=== PATIENT | male | born 1960 | race Caucasian/White ===

== ENCOUNTER 2020-07-05 16:51 | Observation (INO) | payer OTHER, MEDICAID, SELFPAY ==
[2020-07-05 17:25] VITALS: BP 117/65; PULSE 90; RESP 18; TEMP 37; O2SAT 98; BMI 28.3
--- NOTE | 2020-07-05 17:28 | DI.RAD.S_ITS ---
PROCEDURE: XR FOOT RT MIN 3V INDICATIONS: foot swelling, possible metal TECHNIQUE: 3 nonweightbearing views of the foot were acquired. COMPARISON: None. FINDINGS: Bones: No acute fractures or dislocations. No suspicious bony lesions. Soft tissues: No tibiotalar joint effusion. Achilles tendon appears normal. Thin radiopaque lesion is seen at the medial aspect of the distal great toe that may represent calcifications or a radiopaque loose body. Findings are seen in the region of the medial toenail and could be located on or near the skin surface. IMPRESSION: Thin radiopaque lesion at the medial aspect of the distal great toe in the region of the medial toenail that may be on or near the skin surface. No underlying osseous fracture is seen. Dictated by: Angel Luis Smith M.D. on 07/05/2020 at 18:41 Approved by: Angel Luis Smith M.D. on 07/05/2020 at 18:43
[2020-07-05 18:59] LABS: Add Manual Diff / Slide Review NO; Basophils Absolute Auto 100 /uL (0-100); Basophils Percent Auto 0.9 % (0-2); Eosinophils Absolute Auto 200 /uL (0-450); Hematocrit 39.9 % (41-53); Hemoglobin 13.7 g/dL (13.5-17.5); Lymphocytes Absolute Auto 1400 /uL (1100-4500); Lymphocytes Percent Auto 22.9 % (25-40); Mean Corpuscular HGB Conc 34.4 % (30-36); Mean Corpuscular Hemoglobin 31.3 PG (26-34); Monocytes Absolute Auto 600 /uL (0-900); Monocytes Percent Auto 9.2 % (3-14); Neutrophils Absolute Auto 3900 /uL (1500-7000); Platelet Count 201 X10^3/uL (150-400); Red Blood Cell Count 4.38 X10^6/uL (4.5-5.9); Red Cell Distribution Width 12.8 % (11.6-14.8)
[2020-07-05 19:12] LABS: BUN Creatinine Ratio 18.5 (6-22); Blood Urea Nitrogen 23 mg/dL (9-20); C-Reactive Protein Quant 0.9 mg/dL (<1.0); Calcium 9.3 mg/dL (8.4-10.2); Carbon Dioxide 29 mmol/L (22-32); Chloride 104 mmol/L (98-107); Estimated Glomerular Filt Rate 59.3 mL/min (>60); Glucose 94 mg/dL (80-110); HEMOLYSIS < 15 (0-50); Potassium 4.1 mmol/L (3.4-5.1); Sodium 138 mmol/L (137-145)
[2020-07-05 19:33] LABS: Erythrocyte Sedimentation Rate 13 MM/HR (0-15)
[2020-07-05 19:54] VITALS: BP 125/64; PULSE 88; RESP 16
--- NOTE | 2020-07-05 20:48 | ED_ITS ---
HPI - Extremity Problem General Chief complaint: Extremity Problem,Nontraumatic Stated complaint: RIGHT TOE INFECTION Time Seen by Provider: 07/05/20 18:10 Source: patient Mode of arrival: Ambulatory Limitations: no limitations History of Present Illness HPI Narrative: 59-year-old male nonsmoker with history of hypertension presents with his in the chief complaint of increasing pain, redness and swelling of his right great toe. He has had increasing symptoms for the past 3 days and states that he now has significant pain with palpation or ambulation of his right great toe. He now has pain, redness and swelling of his entire toe which extends into the dorsum of his foot in even has red streaking on anterior oliver. He has no systemic findings such as fever, chills nor nausea or vomiting. He states that he recalls wearing athletic shoes and getting a metallic sliver in his right great toe 3 days ago. He just pulled that sliver out prior to his arrival. MD Complaint: extremity pain and extremity swelling Onset (ago): day(s) Pain Consistency: constant Location: right Quality: aching and constant Radiation: proximal Relieving factors: rest Exacerbating factors: walking and palpation Related Data Home Medications Medication Instructions Recorded Confirmed losartan 100 mg PO QAM 07/05/20 07/05/20 Allergies Allergy/AdvReac Type Severity Reaction Status Date / Time No Known Drug Allergies Allergy Verified 07/05/20 17:29 Review of Systems Constitutional Constitutional: Denies chills, Denies fatigue, Denies fever(s), Denies frequent falls, Denies lethargy and Denies weakness Eyes Eyes: Denies change in vision, Denies eye discharge, Denies irritation and Denies loss of vision ENT Ears, Nose, Mouth, and Throat: Denies change in voice, Denies dizziness, Denies neck pain, Denies sore throat and Denies throat swelling Cardiovascular Cardiovascular: Denies chest pain, Denies irregular heart rhythm, Denies lightheadedness, Denies palpitations, Denies dyspnea, Denies dyspnea on exertion and Denies orthopnea Respiratory Respiratory: Denies cough, Denies dyspnea, Denies dyspnea on exertion and Denies wheezing Gastrointestinal Gastrointestinal: Denies abdominal pain, Denies change in bowel habits, Denies diarrhea, Denies nausea and Denies vomiting Musculoskeletal Musculoskeletal: Denies neck pain and Denies numbness Integumentary/Breasts Skin/Breast: Denies pruritus, Reports erythema, Denies rash, Reports skin pain, Reports skin swelling and Reports wounds Neurologic Neurologic: Denies behavioral changes, Denies confusion, Denies dizziness, Denies frequent falls, Denies loss of vision, Denies numbness and Denies weakness Psychiatric Psychiatric: Denies anxiety, Denies behavioral changes, Denies confusion, Denies depression, Denies homicidal ideation and Denies suicidal ideation Endocrine Endocrine: Denies fatigue, Denies flushing and Denies palpitations Hematologic/Lymphatic Hematologic/Lymphatic: Denies easy bruising Allergic/Immunologic Allergic/Immunologic: Denies urticaria, Denies throat swelling and Denies wheezing Patient History Medical History Essential hypertension (Acute) Social History household members: spouse Smoking Status: Never smoker alcohol intake: current Smoking Status: Never smoker alcohol intake frequency: 0-2 drinks per day Exam Narrative Exam Narrative: GENERAL: [59] year old patient appears stated age. Well-nourishe d, well-developed patient, in mild distress. HEAD: Atraumatic. Normocephalic. EYES: Pupils equal round and reactive. Extraocular motions intact. No scleral icterus. No injection or drainage. ENT: Nose without bleeding, purulent drainage. Throat without erythema, tonsillar hypertrophy or exudate. Airway patent. NECK: Trachea midline. Non tender CARDIOVASCULAR: Regular rate and rhythm without murmurs, gallops, or rubs. RESPIRATORY: Clear to auscultation. Breath sounds equal bilaterally. No wheezes, rales, or rhonchi. GASTROINTESTINAL: Abdomen soft, non-tender, nondistended. EXTREMITIES: Right great toe was notably erythematous, swollen and tender. There is erythema extending to the dorsum of the right foot and lymphangitis extends proximally to the anterior oliver. There is induration and perhaps a small amount of fluctuation near an obvious puncture site on the plantar surface of right great toe. There is no active bleeding or drainage. Otherwise No edema or joint tenderness. BACK: Nontender without deformity or crepitance. No flank tenderness. NEURO: AOx3. SKIN: No rash or erythema of visible areas Initial Vital Signs Initial Vital Signs: Vital Signs Temperature 98.6 F 07/05/20 17:25 Pulse Rate 90 07/05/20 17:25 Respiratory Rate 18 07/05/20 17:25 Blood Pressure 117/65 07/05/20 17:25 Pulse Oximetry 98 07/05/20 17:25 Procedures Abscess I/D I&D #1: Site: lower extremity Side (if applicable): right Local Anesthetic: lidocaine 1% and with bicarb Technique: incised with #11 blade Amount of fluid expressed (mL): 2 Irrigation: No Packing used?: none Complications: pain and bleeding Course Orders Ordered: ED Orders 07/05/20 17:28 XR foot RT min 3V Stat 07/05/20 18:50 Basic Metabolic Panel Stat Blood Culture Stat C-Reactive Protein Quant Stat Complete Blood Count AUTO DIFF Stat Erythrocyte Sedimentation Rate Stat Acetaminophen (Tylenol) 650 mg PO Q6HR PRN PRN Reason: Fever/Mild Pain (1-3) Acetaminophen (Tylenol) 650 mg PO Q6HR PRN PRN Reason: Fever/Mild Pain (1-3) Ibuprofen (Advil) 800 mg PO Q6HR PRN PRN Reason: Pain, Mild (1-3) Levofloxacin (Levaquin) 750 mg PO DAILY JITENDRA Naloxone HCl (Narcan) 0.2 mg IV Q2MIN PRN PRN Reason: Opiate Reversal Ondansetron HCl (Zofran) 4 mg IV Q8HR PRN PRN Reason: Nausea And Vomiting Discontinued Medications Diphtheria/Tetanus/Acell Pertussis (Adacel) 0.5 ml IM .ONCE ONE Stop: 07/05/20 23:27 Last Admin: 07/06/20 00:15 Dose: 0.5 ml Documented by: CARMELA Levofloxacin (Levaquin) 500 mg in 100 mls @ 100 mls/hr IV NOW ONE Stop: 07/05/20 21:05 Last Infusion: 07/06/20 00:22 Dose: 0 mls/hr Documented by: Infusion: 07/05/20 21:48 Dose: 100 mls/hr Documented by: Admin: 07/05/20 21:16 Dose: 100 mls/hr Documented by: CECILIA Lidocaine/Sodium Bicarbonate (Buffered Lidocaine 10 Ml Syr) 10 ml INJ NOW ONE Stop: 07/05/20 20:06 Last Admin: 07/05/20 21:16 Dose: 10 ml Documented by: CECILIA Consultations Consultation #1: discussion with ortho. Recommend ID, antibiotics, further imaging and washout if needed. Vital Signs Vital signs: Vital Signs - 8 hr 07/05/20 19:54 07/05/20 21:00 Pulse Rate 88 88 Respiratory Rate 16 16 Blood Pressure 125/64 125/64 Pulse Oximetry 98 MDM - Extremity (Nontraumatic) Lab Data Result diagrams: 07/05/20 18:50 07/05/20 18:50 Labs: Lab Results 07/05/20 07/05/20 Range/Units 18:50 18:50 WBC 6.0 (4.5-11.0) X10^3/uL RBC 4.38 L (4.5-5.9) X10^6/uL Hgb 13.7 (13.5-17.5) g/dL Hct 39.9 L (41-53) % MCV 91.0 (80-100) fL MCH 31.3 (26-34) PG MCHC 34.4 (30-36) % RDW 12.8 (11.6-14.8) % Plt Count 201 (150-400) X10^3/uL Neut % (Auto) 64.0 (50-75) % Lymph % (Auto) 22.9 L (25-40) % [place] % (Auto) 9.2 (3-14) % Eos % (Auto) 3.0 (2-4) % Baso % (Auto) 0.9 (0-2) % Neut # (Auto) 3900 (9280-4026) /uL Lymph # (Auto) 1400 (3410-6552) /uL [place] # (Auto) 600 (0-900) /uL Eos # (Auto) 200 (0-450) /uL Baso # (Auto) 100 (0-100) /uL ESR 13 (0-15) MM/HR Sodium 138 (137-145) mmol/L Potassium 4.1 (3.4-5.1) mmol/L Chloride 104 (98-107) mmol/L Carbon Dioxide 29 (22-32) mmol/L BUN 23 H (9-20) mg/dL Creatinine 1.24 (0.66-1.25) mg/dL Estimated GFR 59.3 L (>60) mL/min BUN/Creatinine Ratio 18.5 (6-22) Glucose 94 (80-110) mg/dL Calcium 9.3 (8.4-10.2) mg/dL C-Reactive Protein 0.9 (<1.0) mg/dL Imaging Data Extremity x-ray #1: Radiologist's Impression: Garret Scott P 59 M [address] [address] XRay Report Signed Patient: Garret Scott PMR#: [id number] : [id number]:[id number] Age/Sex: 59 / MDate of Service: 07/05/20 Loc: ED Accession Number: [id number] Procedure: XR foot RT min 3V Ordering Provider: Mariola Payan [employer]ATING [employer] PROCEDURE: XR FOOT RT MIN 3V INDICATIONS: foot swelling, possible metal TECHNIQUE: 3 nonweightbearing views of the foot were acquired. COMPARISON: None. FINDINGS: Bones: No acute fractures or dislocations. No suspicious bony lesions. Soft tissues: No tibiotalar joint effusion. Achilles tendon appears normal. Thin radiopaque lesion is seen at the medial aspect of the distal great toe that may represent calcifications or a radiopaque loose body. Findings are seen in the region of the medial toenail and could be located on or near the skin surface. IMPRESSION: Thin radiopaque lesion at the medial aspect of the distal great toe in the region of the medial toenail that may be on or near the skin surface. No underlying osseous fracture is seen. Dictated by: Angel Luis Smith M.D. on 07/05/2020 at 18:41 Approved by: Angel Luis Smith M.D. on 07/05/2020 at 18:43 Discharge Plan Departure Patient Disposition: Admitted as Observation Clinical Impression: Cellulitis and abscess of toe of right foot Discharge Date/Time: 07/05/20 21:49 Admit Date/Time: 07/05/20 21:12 Admit Provider: Kristi Holloway
[2020-07-05 21:00] VITALS: BP 125/64; PULSE 88; RESP 16; O2SAT 98
[2020-07-05] MEDS: LIDO 1%/SOD BICARB 8.4% (10ML) 10 ML SYRINGE INJ (21:16)
[2020-07-05] MEDS: levoFLOXacin 500 MG/100 ML PIGGYBACK 100 MG IV (21:16)
[2020-07-05 21:49] VITALS: BP 135/64; PULSE 88; RESP 16; TEMP 36.9; O2SAT 98
[2020-07-05 22:00] VITALS: BP 122/65; PULSE 69; RESP 17; TEMP 35.9; O2SAT 99
[2020-07-05 22:03] VITALS: BMI 28.3
[2020-07-05 22:54] LABS: COVID19 -Nasal RAPID Negative (Negative)
[2020-07-05 23:00] VITALS: O2SAT 99
[2020-07-06] MEDS: TET,DIPH,PERTUSS(ACELL),VAC/PF 0.5 ML SYRINGE IM (00:15)
--- NOTE | 2020-07-06 01:40 | P.HP_ITS ---
History of Present Illness History of Present Illness Date Patient Seen: 07/05/20 Time Patient Seen: 22:30 Chief complaint: RIGHT TOE INFECTION Narrative: Garret Scott is a 59-year-old male with a limited medical history of only hypertension, and no surgeries who was working in his shop when he noticed that his foot was sore. He was trying to figure out whether not he had actually dropped something on it. He then took his sock off and looked at his foot and noticed that he had what appeared to be a piece of metal shard on the bottom of his great right toe. He decided to remove the sliver with a knife that he had. He then presented to the emergency room because he developed increasing pain and redness. For the patient he did not know when his last Tdap was. He denies fever sweats or chills, his main complaint is increasing redness of his right foot and pain in his right great toe. In the emergency department they started him on a 1 time dose IV Levaquin 500 mg to cover both skin structure insert possible Pseudomonas. Apparently Dr. Shashi simmons was called and per the ED provider did not feel that she needed to do a debridement. Patient's presenting vitals: Temp 96.6?, blood pressure 122/65, heart rate 69, respiratory rate of 17, oxygen saturation 99% room air, he weighs 97.5 kg with a BMI of 28.3. WBC 6.0, RBC 4.38, hemoglobin 13.7, hematocrit 39.9, platelet count 201, sodium 138, potassium 4.1, chloride 104, CO2 29, creatinine 1.24, BUN, GFR is 59.3, COVID-19 negative. Patient History Medical History (Updated 07/06/20 @ 01:43 by RYAN Lo) Essential hypertension (Acute) Family & Social History Social History: household members spouse Prior Living Arrangements House Safety & Behavioral: Feels Safe in Current Yes Environment Been Physically Hurt or No Threatened By a Person Suicidal Ideation Description None Suicide Plan Description No Plan Tobacco & Substance use: Smoking Status Never smoker alcohol intake current alcohol intake frequency 0-2 drinks per day Substance Use Type does not use Meds Home Medications and Allergies Home Medications Medication Instructions Recorded Confirmed Type losartan 100 mg PO QAM 07/05/20 07/05/20 History Allergies Allergy/AdvReac Type Severity Reaction Status Date / Time No Known Drug Allergies Allergy Verified 07/05/20 17:29 Review of Systems Review of Systems ROS: Yes All systems reviewed with the patient and are negative except as otherwise documented Exam Vital Signs (past 8 hours): - 07/05/20 19:54 07/05/20 21:00 07/05/20 21:49 Temperature 98.4 F Pulse Rate 88 88 88 Respiratory Rate 16 16 16 Blood Pressure 125/64 125/64 135/64 Pulse Oximetry 98 98 07/05/20 22:00 Temperature 96.6 F L Pulse Rate 69 Respiratory Rate 17 Blood Pressure 122/65 Pulse Oximetry 99 Oxygen Delivery Method Room Air Narrative Exam Narrative: Alert, oriented, well-developed 59 y.o. male, NAD HEENT: normocephalic, atraumatic, conjunctiva clear, sclera non-icteric, oral mucosa pink and moist Neck: supple, full ROM, no JVD, trachea is midline Resp: Lungs CTA, non-labored breathing CV: RRR, no murmur or rubs Abd: soft, non-tender, normoactive BTs Skin: Patient has a darkened punctate hole at the bottom of his right great toe in the joint line, or rashes, dry and intact Neuro: Alert and oriented X 4 w/no focal deficits. Speech clear and coherent. Extremities: Great right toe is swollen and stiff moves all 4 extremities, is ambulatory, negative Manny?s sign Psyche: normal mood and affect. Objective Labs Result Diagrams: 07/05/20 18:50 07/05/20 18:50 Labs: Laboratory Results - last 24 hr 07/05/20 07/05/20 07/05/20 18:50 18:50 21:15 WBC 6.0 RBC 4.38 L Hgb 13.7 Hct 39.9 L MCV 91.0 MCH 31.3 MCHC 34.4 RDW 12.8 Plt Count 201 Neut % (Auto) 64.0 Lymph % (Auto) 22.9 L [place] % (Auto) 9.2 Eos % (Auto) 3.0 Baso % (Auto) 0.9 Neut # (Auto) 3900 Lymph # (Auto) 1400 [place] # (Auto) 600 Eos # (Auto) 200 Baso # (Auto) 100 ESR 13 Sodium 138 Potassium 4.1 Chloride 104 Carbon Dioxide 29 BUN 23 H Creatinine 1.24 Estimated GFR 59.3 L BUN/Creatinine Ratio 18.5 Glucose 94 Calcium 9.3 C-Reactive Protein 0.9 COVID-19 PCR Negative Assessment & Plan Assessment & Plan narrative: Garret Scott will be observed overnight for further monitoring and treatment of a potential abscess and infection of the great right toe. Suspected abscess and cellulitis of the great right toe, acute, present on a dmission -he will start oral Levaquin 750 mg p.o. daily as it has the same bioavailability as IV Levaquin -Dr. Garibay was consulted in the ED -recommended hot soaks, marking the area of erythema on his ankle area -if worsening will recommend further advanced imaging -he received a Tdap vaccine Essential hypertension -continue home dose of losartan 100 mg p.o. in the morning Consults: Dr. Paz was notified and may consult and involvement as requested Patient is observation status as his stay is not likely to exceed 2 midnights. FEN: saline lock, low sodium diet, BMP and magnesium in the am. VTE prophylaxis: Bilateral SCDs Dispo: Probable discharge home on oral antibiotics with follow-up with his PCP. Code Status: Full code as discussed with patient Quality VTE Deep Vein Thrombosis/Pulmonary Embolism Present on Admission: No
[2020-07-06 05:55] VITALS: BP 118/65; PULSE 70; RESP 16; TEMP 36.3; O2SAT 96
[2020-07-06 06:16] LABS: Blood Urea Nitrogen 19 mg/dL (9-20); Calcium 8.7 mg/dL (8.4-10.2); Carbon Dioxide 31 mmol/L (22-32); Chloride 104 mmol/L (98-107); Estimated Glomerular Filt Rate > 60.0 mL/min (>60); Glucose 101 mg/dL (80-110); HEMOLYSIS < 15 (0-50); Magnesium 1.9 mg/dL (1.6-2.3); Potassium 4.5 mmol/L (3.4-5.1); Sodium 137 mmol/L (137-145)
[2020-07-06 06:21] LABS: Add Manual Diff / Slide Review NO; Basophils Absolute Auto 100 /uL (0-100); Basophils Percent Auto 1.2 % (0-2); Eosinophils Absolute Auto 200 /uL (0-450); Eosinophils Percent Auto 4.4 % (2-4); Hematocrit 41.2 % (41-53); Lymphocytes Absolute Auto 1100 /uL (1100-4500); Lymphocytes Percent Auto 19.7 % (25-40); Mean Corpuscular Hemoglobin 31.2 PG (26-34); Mean Corpuscular Volume 91.8 fL (80-100); Monocytes Absolute Auto 700 /uL (0-900); Monocytes Percent Auto 11.4 % (3-14); Neutrophils Absolute Auto 3600 /uL (1500-7000); Neutrophils Percent Auto 63.3 % (50-75); Platelet Count 186 X10^3/uL (150-400); Red Blood Cell Count 4.49 X10^6/uL (4.5-5.9); Red Cell Distribution Width 12.8 % (11.6-14.8); White Blood Cell Count 5.7 X10^3/uL (4.5-11.0)
[2020-07-06 08:28] VITALS: BP 120/77; PULSE 75; RESP 16; TEMP 35.9; O2SAT 97
--- NOTE | 2020-07-06 08:45 | P.CONS_ITS ---
History of Present Illness Consult details Date Patient Seen: 07/06/20 Time Patient Seen: 08:45 Chief complaint: RIGHT TOE INFECTION Reason for consult: Cellulitis puncture wound Requesting provider: Santos Aden Narrative: Garret is a 59-year-old male with a history of hypertension presents with a right great toe cellulitis. States he was working in his shop several days ago when he believes a metal splinter gotten through the top of his shoe. He does recall feeling something underneath his toe 1 point but did not think much of it. Few days later his toe became red and swollen and painful. That is when they found a black dot on the plantar surface of his great toe for right near the IP joint flexion crease. This was noted to be a metal sliver. Patient states with the help of a mirror he dug the metal shard out with a knife. But with the redness and swelling and a previous history of a staph infection before he presented to the ER for evaluation. No history of diabetes. He was not aware of when his last tetanus was but this was updated in the ER. In the ER a small I&D of the area was completed and a culture sent. He is also given a dose of Levaquin. Overnight he notes that his redness that was on the toe and actually extending up the oliver is in well has completely resolved. Swelling in the toe and tenderness have improved. And range of motion has improved. Meds Home Medications and Allergies Home Medications Medication Instructions Recorded Confirmed Type losartan 100 mg PO QAM 07/05/20 07/05/20 History Allergies Allergy/AdvReac Type Severity Reaction Status Date / Time No Known Drug Allergies Allergy Verified 07/05/20 17:29 Review of Systems Review of Systems ROS: Yes All systems reviewed with the patient and are negative except as ot herwise documented Exam Vital Signs (past 8 hours): - 07/06/20 05:55 07/06/20 08:28 Temperature 97.4 F L 96.6 F L Pulse Rate 70 75 Respiratory Rate 16 16 Blood Pressure 118/65 120/77 Pulse Oximetry 96 97 Oxygen Delivery Method Room Air Oxygen Flow Rate 0 Narrative Exam Narrative: General exam is alert oriented male in no acute distress. Sitting in bed. HEENT exam normocephalic atraumatic Respiratory exam unlabored on room air Heart regular rate and rhythm Abdomen benign Musculoskeletal exam moving upper extremities bilaterally full range of motion. Moves bilateral lower extremities full range of motion. Right great toe. There is mild swelling. Previous it reported erythema of the dorsum of the foot to the mid calf and left and dried is has resolved. There is a small puncture area at the IP flexion crease plantarly at the great toe there is no fluctuance and no fluid that can be expressed from this. Patient demonstrates active flexion and extension at the IP joint. This causes minimal discomfort. Sensation grossly intact to light touch. Brisk capillary refill. Objective Imaging R foot XR: My impression: Three views of the right foot. On the lateral image of the great toe does appear to be a small radiopaque then object near the surface right around the IP flexion crease. This could be a small metal rim minute this was before the ER I and D. no fractures are seen Radiologist's impression: IMPRESSION: Thin radiopaque lesion at the medial aspect of the distal great toe in the region of the medial toenail that may be on or near the skin surface. No underlying osseous fracture is seen. Dictated by: Angel Luis Smith M.D. on 07/05/2020 at 18:41 Approved by: Angel Luis Smith M.D. on 07/05/2020 at 18:43 Labs Result Diagrams: 07/06/20 05:30 07/06/20 05:30 Labs: Laboratory Results - last 24 hr 07/05/20 07/05/20 07/05/20 18:50 18:50 21:15 WBC 6.0 RBC 4.38 L Hgb 13.7 Hct 39.9 L MCV 91.0 MCH 31.3 MCHC 34.4 RDW 12.8 Plt Count 201 Neut % (Auto) 64.0 Lymph % (Auto) 22.9 L [place] % (Auto) 9.2 Eos % (Auto) 3.0 Baso % (Auto) 0.9 Neut # (Auto) 3900 Lymph # (Auto) 1400 [place] # (Auto) 600 Eos # (Auto) 200 Baso # (Auto) 100 ESR 13 Sodium 138 Potassium 4.1 Chloride 104 Carbon Dioxide 29 BUN 23 H Creatinine 1.24 Estimated GFR 59.3 L BUN/Creatinine Ratio 18.5 Glucose 94 Calcium 9.3 Magnesium C-Reactive Protein 0.9 COVID-19 PCR Negative 07/06/20 07/06/20 05:30 05:30 WBC 5.7 RBC 4.49 L Hgb 14.0 Hct 41.2 MCV 91.8 MCH 31.2 MCHC 34.0 RDW 12.8 Plt Count 186 Neut % (Auto) 63.3 Lymph % (Auto) 19.7 L [place] % (Auto) 11.4 Eos % (Auto) 4.4 H Baso % (Auto) 1.2 Neut # (Auto) 3600 Lymph # (Auto) 1100 [place] # (Auto) 700 Eos # (Auto) 200 Baso # (Auto) 100 ESR Sodium 137 Potassium 4.5 Chloride 104 Carbon Dioxide 31 BUN 19 Creatinine 0.95 Estimated GFR > 60.0 BUN/Creatinine Ratio 20.0 Glucose 101 Calcium 8.7 Magnesium 1.9 C-Reactive Protein COVID-19 PCR Assessment & Plan Assessment and plan (1) Cellulitis and abscess of toe of right foot: Problem details: The patient had a metal sliver at the plantar aspect of his great toe IP joint in the subcutaneous tissues. He removed at home. On the x-ray there may be a small fragment left this was prior to the ER I and D and the patient has had marked improvement in his cellulitis overnight with a dose of antibiotics. At this point his clinical appearance is greatly improved. Recommend discharge with oral antibiotics. If swelling or erythema recurs would plan for repeat I and D at the area of the puncture site. No evidence of abscess currently. Patient had up-to-date tetanus in the ER. He can follow up in my clinic as an outpatient if there are any persistent concerns. Status: Acute
[2020-07-06] MEDS: SODIUM CHLORIDE 0.9% FLUSH 10 ML IV (08:58)
[2020-07-06] MEDS: levoFLOXacin 250 MG TABLET 750 MG PO (08:59)
--- NOTE | 2020-07-06 09:08 | PM.DS.1 ---
History of Present Illness History of Present Illness Date Patient Seen: 07/06/20 Chief complaint: RIGHT TOE INFECTION Narrative: Garret Scott is a 59-year-old male with a limited medical history of only hypertension, and no surgeries who was working in his shop when he noticed that his foot was sore. He was trying to figure out whether not he had actually dropped something on it. He then took his sock off and looked at his foot and noticed that he had what appeared to be a piece of metal shard on the bottom of his great right toe. He decided to remove the sliver with a knife that he had. He then presented to the emergency room because he developed increasing pain and redness. For the patient he did not know when his last Tdap was. He denies fever sweats or chills, his main complaint is increasing redness of his right foot and pain in his right great toe. In the emergency department they started him on a 1 time dose IV Levaquin 500 mg to cover both skin structure insert possible Pseudomonas. Apparently Dr. Garibay was called and per the ED provider did not feel that she needed to do a debridement. Patient's presenting vitals: Temp 96.6?, blood pressure 122/65, heart rate 69, respiratory rate of 17, oxygen saturation 99% room air, he weighs 97.5 kg with a BMI of 28.3. WBC 6.0, RBC 4.38, hemoglobin 13.7, hematocrit 39.9, platelet count 201, sodium 138, potassium 4.1, chloride 104, CO2 29, creatinine 1.24, BUN, GFR is 59.3, COVID-19 negative. Discharge Providers Provider Date of admission: 07/05/20 21:12 Discharge Date: 07/06/20 Consults: 07/05/20 22:19 Consult to Physician Routine Comment: Consulting Provider: Yolanda Paz Reason for consultation: Suspected abcess of left great toe Has provider been notified: Yes Discharge provider: Samantha Duran MD Summary Hospital Course Discharge Diagnosis: 1. Cellulitis 2. Right toe foreign body removed 3. Hypertension Hospital Course: Patient admitted for cellulitis. He had some lyphagentic spread. After IV antibiotics reddness improved. Patient was seen by ortho, Dr. Paz who agreed with treatment plan. Patient had no further reddness and improved pain. He was deemed appropriate for discharge home. Patient denied diarrhea, shortness or breath, or pain. Status at Discharge Cognitive/behavioral status at discharge: oriented Functional status at discharge: independent ambulation Overall status at discharge: patient is back to baseline Time Spent with Patient Time spent: Less than 30 minutes Exam Vital Signs (past 8 hours): - 07/06/20 05:55 07/06/20 08:28 Temperature 97.4 F L 96.6 F L Pulse Rate 70 75 Respiratory Rate 16 16 Blood Pressure 118/65 120/77 Pulse Oximetry 96 97 Oxygen Delivery Method Room Air Oxygen Flow Rate 0 Narrative Exam Narrative: pleasant male in NAD Lungs: Clear to Auscultation CV: RRR nl Sl S2 Abd: soft non tender Right great toe foot: no erythema, non tender, no warmth, very small whole on plantar surface of right great toe, no exudate noted Objective Labs Result Diagrams: 07/06/20 05:30 07/06/20 05:30 Labs: Laboratory Results - last 24 hr 07/05/20 07/05/20 07/05/20 18:50 18:50 21:15 WBC 6.0 RBC 4.38 L Hgb 13.7 Hct 39.9 L MCV 91.0 MCH 31.3 MCHC 34.4 RDW 12.8 Plt Count 201 Neut % (Auto) 64.0 Lymph % (Auto) 22.9 L [place] % (Auto) 9.2 Eos % (Auto) 3.0 Baso % (Auto) 0.9 Neut # (Auto) 3900 Lymph # (Auto) 1400 [place] # (Auto) 600 Eos # (Auto) 200 Baso # (Auto) 100 ESR 13 Sodium 138 Potassium 4.1 Chloride 104 Carbon Dioxide 29 BUN 23 H Creatinine 1.24 Estimated GFR 59.3 L BUN/Creatinine Ratio 18.5 Glucose 94 Calcium 9.3 Magnesium C-Reactive Protein 0.9 COVID-19 PCR Negative 07/06/20 07/06/20 05:30 05:30 WBC 5.7 RBC 4.49 L Hgb 14.0 Hct 41.2 MCV 91.8 MCH 31.2 MCHC 34.0 RDW 12.8 Plt Count 186 Neut % (Auto) 63.3 Lymph % (Auto) 19.7 L [place] % (Auto) 11.4 Eos % (Auto) 4.4 H Baso % (Auto) 1.2 Neut # (Auto) 3600 Lymph # (Auto) 1100 [place] # (Auto) 700 Eos # (Auto) 200 Baso # (Auto) 100 ESR Sodium 137 Potassium 4.5 Chloride 104 Carbon Dioxide 31 BUN 19 Creatinine 0.95 Estimated GFR > 60.0 BUN/Creatinine Ratio 20.0 Glucose 101 Calcium 8.7 Magnesium 1.9 C-Reactive Protein COVID-19 PCR Discharge Assessment & Plan Assessment and Plan Assessment: 1. Cellulitis 2. Hypertension Plan of Treatment: Continue antibiotic for one week treatment Follow up with in one week Discharge Plan Discharge Plan Discharge Problem: Cellulitis and abscess of toe of right foot Patient Disposition: Home Discharge orders & Medications Prescriptions: New levofloxacin 500 mg tablet 500 mg PO DAILY Qty: 6 RF: 0 Continued losartan 100 mg tablet 100 mg PO QAM RF: 0 Discharge Health Status Multidrug resistant organism: No MDRO Diet/Activity/Treatments Diet: Low-sodium Activity: as tolerated Skin/Wound/Dressing Care Report to your healthcare provider any signs of infection, such as:: chills, fever Discharge Data Attending Provider: Kristi Holloway Admit Date/Time: 07/05/20 21:12 Quality VTE Deep Vein Thrombosis/Pulmonary Embolism Present on Admission: No
--- NOTE | 2020-07-06 09:15 | CM.DANOTE ---
DCP: Case received, EMR reviewed and met with patient. Introduced self and role. Was able to get some information from patient regarding his baseline activity level. DCP assessment completed with information currently available. Patient is a 59 year old male who admitted yesterday evening to the care of the hospitalist team. PCP: Dr. Nguyen. Payer: confirmed: [facility]. Patient came to the hospital via family vehicle secondary to concerns of a toe infection. According to notes, patient had been working in his shop, and sustained a metallic sliver that he removed with a knife. It had noted some tenderness and redness, and came in to the hospital to have it evaluated. He holds diagnosis of infection, and was given IV ABO. Plan is for him to go home with oral antibiotics. Met with patient in his room. He is alert and oriented, independent. He is hopeful to go home today. He is active, confirmed his provider is Dr. Nguyen in [place]. He resides in [place] with his spouse, Kimberlee. P: DCP to continue to follow for any needs. He should be able to go home on oral antibiotics. He was consulted by oscar. Khloe Tim, ROGEL[employer]
--- NOTE | 2020-07-06 11:07 | PC.NURSE ---
Discharge: IV dc'd intact. Reviewed d/c instructions thoroughly with patient. Levaquin prescription called in to [facility] per patient request, patient aware to start tomorrow (since he got dose this morning already and it's ordered Qday). He has appt scheduled with his PCP for this coming Wednesday, so will follow up then. Instructed to call MD or return to hospital with s/sx worsening cellulitis, or with any other concerns. Verbalized understanding of d/c instructions and stated no further questions. All belongings sent with patient at discharge, walked out to private vehicle accompanied by this personal lines underwriter. Patient driving himself home, Dr Duran aware and was fine with that.
== END 2020-07-06 11:37 | disposition home or self-care (01) ==
LOC: ED 20:44 → AC 21:12
PROVIDERS: Admitting Provider Nurse Practitioner Family; Emergency Provider Emergency Medicine; Referring Provider Emergency Medicine; Visit Provider Nurse Practitioner Family
DX: L03.031 Cellulitis of right toe (principal); L02.611 Cutaneous abscess of right foot; M79.674 Pain in right toe(s); I10 Essential (primary) hypertension; Z11.59 Encounter for screening for other viral diseases
CPT/HCPCS: 10060; 36415; 73630; 80048; 83735; 85025; 85651; 86140; 87040; 87070; 87075; 87077; 87147; 87186; 87205; 87635; 90471; 96365; 96366; 99284; G0378; 90715; J1956

== ENCOUNTER 2023-07-28 10:49 | Emergency (ER) | payer OTHER, MEDICAID, SELFPAY ==
[2023-07-28 10:57] VITALS: BP 147/81; PULSE 64; RESP 16; TEMP 36.4; O2SAT 97; BMI 27.0
[2023-07-28] MEDS: FLUORESCEIN 1 MG STRIP EYE-RIGHT (11:07)
[2023-07-28] MEDS: PROPARACAINE 0.5% OPHTH SOL 1 DROPS EYE-RIGHT (11:07)
--- NOTE | 2023-07-28 11:10 | ED_ITS ---
HPI - Eye Problem General Chief complaint: Eye Problems Stated complaint: Foreign body right eye Time Seen by Provider: 07/28/23 11:10 Source: patient Mode of arrival: Ambulatory Limitations: no limitations History of Present Illness HPI Narrative: The patient was feeling shakes out of a pickup truck yesterday evening at home. There was dust. Although work was blow I level. After the work was over with, he developed right eye pain. There is a little bit of injection and I this morning. He can see a foreign body in the central part of the eye. He is no visual field changes. He has watery drainage only. There is no ?leaking? from the eye. He is no URI symptoms. Related Data Home Medications Medication Instructions Recorded Confirmed losartan 100 mg tablet 100 mg PO QAM 07/05/20 07/05/20 Previous Rx's Medication Instructions Recorded levofloxacin 500 mg tablet 500 mg PO DAILY #6 tabs 07/06/20 gentamicin 0.3 % eye drops 1 drp EYE-RIGHT Q4HRWA #5 mL 07/28/23 Allergies Allergy/AdvReac Type Severity Reaction Status Date / Time No Known Drug Allergies Allergy Verified 07/05/20 17:29 Review of Systems Review of Systems ROS Unobtainable: All systems reviewed & are unremarkable except as noted in HPI and below Patient History Medical History (Updated 07/28/23 @ 12:48 by Seamus Hudson MD) Essential hypertension Social History household members: spouse Smoking Status: Never smoker alcohol intake: current Smoking Status: Never smoker alcohol intake frequency: 0-2 drinks per day Substance Use Type: does not use Exam Initial Vital Signs Initial Vital Signs: Vital Signs Temperature 97.6 F 07/28/23 10:57 Pulse Rate 64 07/28/23 10:57 Respiratory Rate 16 07/28/23 10:57 Blood Pressure 147/81 H 07/28/23 10:57 Pulse Oximetry 97 07/28/23 10:57 Oxygen Delivery Method Room Air 07/28/23 10:57 Const General: cooperative, healthy appearing and comfortable [facility] Head: normal to inspection, normocephalic and atraumatic Eyes Pupils: PERRL EOM: EOM intact bilaterally Other: Small foreign body visualized on the central pupil. The foreign body was confirmed with fluorescein exam as well as microscopic exam. Procedures Foreign Body EYE Time of procedure: 12:15 Time Out performed: Yes Location: eye (R) Topical anesthetic used: proparacaine Foreign body: wood Evidence of corneal penetration: No Technique: irrigation, cotton tip swab, electric pedro and other (The foreign body moved with the bur, but was adherent to the surface of his eye. A wet cot ton tip swab was used. The foreign body appears to have been removed. The patient was irrigated afterwards. There were no complications.) Procedure performed under: slit-lamp Course Orders Ordered: Discontinued Medications Fluorescein Sodium (Fluorescein 1 Mg Strip) 1 mg EYE-RIGHT NOW ONE Stop: 07/28/23 11:00 Last Admin: 07/28/23 11:07 Dose: 1 mg Documented By: JUANJOSE Proparacaine HCl (Proparacaine 0.5% Ophth Jackie) 1 drops EYE-RIGHT NOW ONE Stop: 07/28/23 11:00 Last Admin: 07/28/23 11:07 Dose: 1 drop Documented By: JUANJOSE Vital Signs Vital signs: Vital Signs - 8 hr 07/28/23 10:57 07/28/23 12:54 Temperature 97.6 F Pulse Rate 64 66 Respiratory Rate 16 16 Blood Pressure 147/81 H 137/84 Pulse Oximetry 97 97 Oxygen Delivery Method Room Air Room Air Discharge Plan Departure Patient Disposition: Home Clinical Impression: Foreign body of right eye Qualifiers: Encounter type: initial encounter Qualified Code(s): T15.91XA - Foreign body on external eye, part unspecified, right eye, initial encounter Instructions: DI for Foreign Body in the Eye Activity Restrictions/Additional Instructions: Gentamicin 1 drop into the right eye every 4 hours while awake for 5 days. Tylenol every 4 hours as needed for pain. I would recommend frequent cold compresses over the right eye for comfort. It appears as if the foreign body has been completely removed, however, If you are still having symptoms after 5 days you need to be seen by an consumer loan specialist. Return here as necessary. Prescriptions: New gentamicin 0.3 % drops 1 drp EYE-RIGHT Q4HRWA Qty: 5 0RF No Action losartan 100 mg tablet 100 mg PO QAM levofloxacin 500 mg tablet 500 mg PO DAILY Qty: 6 0RF Stand Alone Forms: Patient Portal/API
--- NOTE | 2023-07-28 12:41 | PC.NURSE ---
eye being irrigated with 250mL NS with IV tubing and tolerated well. Pt refused morgans lense. states eye is feeling better post irrigation.
[2023-07-28 12:54] VITALS: BP 137/84; PULSE 66; RESP 16; O2SAT 97
== END 2023-07-28 12:55 | disposition home or self-care (01) ==
PROVIDERS: Emergency Provider Emergency Medicine
DX: T15.91XA Foreign body on external eye, part unspecified, right eye, initial encounter (principal)
CPT/HCPCS: 65222; 99283; 99284